=== PATIENT | female | born 1955 ===

== ENCOUNTER 2018-09-01 15:08 | Inpatient (IN) | payer MEDICARE, OTHER ==
[~2018-09-01] VITALS: Ht 167.6 cm; Wt 62.0 kg
[~2018-09-01 15:08] MED LIST: ALBU90OI INH; DOXY100 PO; ESCI20 PO; FLUT110OIA IH; HYDGUAL120 PO
[2018-09-01 15:56] LABS: Hematocrit 33.3 % (33.0-51.0); Hemoglobin 10.8 g/dL (11.5-16.0); Mean Corpuscular HGB 28.4 pg (26.0-34.0); Mean Corpuscular HGB Conc 32.4 g/dL (31.5-36.5); Mean Corpuscular Volume 88 fL (80-100); Mean Platelet Volume 8.7 fL (9.1-12.4); Platelet Count 273 K/mm3 (150-400); RDW Standard Deviation 57.9 fL (35.1-46.3); White Blood Cell Count 20.29 K/mm3 (4.00-11.30)
[2018-09-01] MEDS ORDERED: ALPR.5 PO (15:58)
[2018-09-01 16:14] LABS: BASOPHILS PERCENT MAN 0 % (0-2); EOSINOPHILS PERCENT MAN 0 % (0-6); LYMPHOCYTES ABSOLUTE MAN 0.81 K/mm3 (0.84-5.20); LYMPHOCYTES PERCENT MAN 4 % (21-46); MONOCYTES PERCENT MAN 2 % (4-13); NEUTROPHILS ABSOLUTE MAN 19.07 K/mm3 (1.96-9.15); SEG NEUTROPHILS PERCENT MAN 94 % (41-73); TOTAL CELLS COUNTED 100
[2018-09-01 16:22] LABS: Albumin, Blood 2.8 g/dL (3.4-5.0); Albumin/Globulin Ratio 0.6 (0.8-1.8); Bilirubin, Total 0.5 mg/dL (0.1-1.0); Bun/Creatinine Ratio 20.9 (12.0-20.0); Calcium, Blood 8.3 mg/dL (8.5-10.1); Creatinine, Blood 1.34 mg/dL (0.40-1.00); Globulin, Blood 4.7 g/dL (2.2-4.0); Potassium, Blood 3.1 mmol/L (3.5-5.5); Total Protein, Blood 7.5 g/dL (6.4-8.2); Troponin I 0.073 ng/mL (0.000-0.040)
--- NOTE | 2018-09-01 20:30 | NUR ---
PATIENT BLOOD PRESSURE DOWN TO 82/54 MAP 63. CALLED HOSPITALIST WHO ORDERED FOR 1L BOLUS OF NS. ALSO ASKED IF HE WOULD LIKE TO REPLACE K+ THAT WAS 3.1. THERE IS AN ORDER FOR NS WITH 20K+ AT 125 TO BE INFUSED THROUGH THE NIGHT, STATES THIS IS ENOUGH AT THIS TIME.
--- NOTE | 2018-09-01 21:57 | NUR ---
PATIENT FINISHED BOLUS BLOOD PRESSURE UP TO SYSTOLIC OF 101. MAP IS JUST ADEQUATE. PATIENT CONTINUES ON ROOM AIR, BUT IS AUDIBLY WET, LUNG SOUNDS ARE COARSE AND WET. NOTIFIED HOSPITALIST WHO ORDERED FOR 500CC BOLUS OF NS AND PORTABLE CHEST XR AFTER BOLUS IS FINISHED.
--- NOTE | 2018-09-02 02:10 | NUR ---
PATIENT BLOOD PRESSURE UP TO 157/87. PATIENT HAS SHORTNESS OF BREATH. OXYGEN SATURATION DOWN TO 88% ON ROOM AIR, PLACED ON 2l NC. PATIENT AUBILY WET AND LUNG SOUNDS ARE WET AND COARSE. CALLED HOSPITALIST WHO ORDERED FOR 40 MG OF IV LASIX X1 NOW.
[2018-09-02 04:06] LABS: BASOPHILS ABSOLUTE AUTO 0.03 K/mm3 (0.00-0.23); BASOPHILS PERCENT AUTO 0 % (0-2); Hematocrit 31.3 % (33.0-51.0); Hemoglobin 9.9 g/dL (11.5-16.0); LYMPHOCYTES ABSOLUTE AUTO 1.05 K/mm3 (0.84-5.20); LYMPHOCYTES PERCENT AUTO 9 % (21-46); MONOCYTES ABSOLUTE AUTO 1.05 K/mm3 (0.16-1.47); MONOCYTES PERCENT AUTO 9 % (4-13); Mean Corpuscular HGB 28.1 pg (26.0-34.0); Mean Corpuscular HGB Conc 31.6 g/dL (31.5-36.5); Mean Corpuscular Volume 89 fL (80-100); Mean Platelet Volume 9.4 fL (9.1-12.4); Platelet Count 253 K/mm3 (150-400); RDW Coefficient Variation 18.1 % (11.7-14.2); RDW Standard Deviation 58.6 fL (35.1-46.3); Red Blood Cell Count 3.52 M/mm3 (3.80-5.20); White Blood Cell Count 11.44 K/mm3 (4.00-11.30)
--- NOTE | 2018-09-02 04:09 | NUR ---
PATIENT HAVING COUGHING FITS OFTEN. GIVEN A WARM BLANKET THAT SEEMED TO HELP A BIT. COUGH NONPRODUCTIVE AT THIS TIME.
[2018-09-02 04:12] LABS: EOSINOPHILS PERCENT AUTO 0 % (0-6); IMMATURE GRAN ABSOLUTE AUTO 0.06 K/mm3 (0.00-0.10); IMMATURE GRAN PERCENT AUTO 1 % (0-1); NEUTROPHILS ABSOLUTE AUTO 9.25 K/mm3 (1.96-9.15); NEUTROPHILS PERCENT AUTO 81 % (41-73)
[2018-09-02 04:26] LABS: Bun/Creatinine Ratio 23.8 (12.0-20.0); Creatinine, Blood 1.01 mg/dL (0.40-1.00); Potassium, Blood 3.5 mmol/L (3.5-5.5)
--- NOTE | 2018-09-02 05:44 | NUR ---
PATIENT STRUGGLE TO GET ANY SLEEP DUE TO COUGHING AND HAVING TO GET UP TO THE COMMODE. PATIENT STATES SHE FEELS AWFUL. CONTINUING OXYGEN DUE COUGHING DROPPING OXYGEN INTO LOW 90'S WITH OXYGEN ON.
[2018-09-02] MEDS ORDERED: VENL75ER PO (07:04)
--- NOTE | 2018-09-02 11:06 | NUR ---
PT OFF PCU UNIT OUT TO [facility] FOR ANGIO. CONSENT SIGNED BY AND PATIENT PRIOR TO PATIENT LEAVING UNIT
--- NOTE | 2018-09-02 13:17 | NUR ---
ASSUMED CARE AND COMFORT OF THIS PATIENT AT 0710 TODAY FROM CAROL RN. PT WAS RESTING COMFORTABLY ON BED IN ROOM. ROUSED EASILY TO VERBAL STIMULI. COOPERATIVE WITH CARE THROUGHOUT DAY. MAKES MED NO TELE STATUS THIS AM AND TRANSFER ORDERS ARE PLACED BY THIS RN. IV NS WITH 20MEQ CONTINUES TO INFUSE ORDERED WILLCONTINUE TO MONITOR.
--- NOTE | 2018-09-02 14:01 | NUR ---
Patient is sitting on the edge of her bed and alert. She is talking with a friend who is on her lunch break so I make my comments brief. I find out patient's medical situation, how patient is processing mentally/emotionally and learn patient's belief system (firm believer in God and finds strength and inspiration from her prayers). I provide emotional support and prayer. Patient and friend thank you for the visit.
--- NOTE | 2018-09-02 16:58 | NUR ---
END OF SHIFT; PT VERY SLEEPY MOST OF DAY. IS NOW MED/NO TELE STATUS. PT ABLE TO GET SELF UP TO BEDSIDE COMMODE. NADN. DENIES ANY WANTS OR NEEDS. IS NOW ON ROOM AIR. XANAX X 1 TODAY FOR ANXIETY. REFUSES EFFEXOR STATES SHE HAS NOT TAKEN IT FOR OVER A MONTH. UPSET THAT HER DOCTOR WAS CHARGING HER TO RENEW RX. WILL CONTINUE TO MONITOR THIS PATEIETN UNTIL REPORT AND HAND OFF TO NOC SHIFT RN.
--- NOTE | 2018-09-03 01:29 | NUR ---
PATIENT COMPLAINS THAT SHE IS HAVING VERY WEIRD DREAMS AND SHE JUST CAN'T GET ANY SLEEP AND SHE JUST WANTS IT TO STOP. cALLED HOSPITALIST AT HER INSISTANCE. DOCTOR ORDERED FOR 1MG OF ATIVAN PO TIME ONE. NO FURTHER ORDERS AT THIS TIME.
--- NOTE | 2018-09-03 05:03 | NUR ---
PATIENT LUNG BUTCHER MORE COARSE AND WET. O2 DROPPING TO 88% ON ROOM AIR. PATIENT AUBILY WET. PATIENT FEELS SHORT OF BREATH. CALLED HOSPITALIST WHO ORDERED TO DISCONTINUE FLUIDS AND GIVE 40MG IV LASIX NOW. PATIENT CRYING THAT SHE JUST CAN'T STAND THIS. PATIENT VERY EMOTIONAL AND CRYING.
--- NOTE | 2018-09-03 08:30 | NUR ---
INITIAL ASSESSMENT: PT IS RESTING WITH HER EYES CLOSED, SHE IS LYING ON HER LEFT SIDE. PT EASILY AWAKENS TO VERBAL STIMULI. PT IS ALERT AND OX3. PT DENIES PAIN AT THIS TIME. HRR. LS COARSE T/O. PT HAS COARSE PC WITH THIN CLEAR SPUTUM. BIOX WNL ON RA. BT+. PPP. NO EDEMA PRESENT. VSS. AM MEDS GIVEN PO WITH A SIP OF WATER PT TOLERATED WELL. DRESSING FOR LEFT AC IV CHANGED, IV IS LEAKING-IV DC'D. PT DENIES OTHER NEEDS AT THIS TIME. CALL LIGHT IN REACH, WILL CONTINUE TO MONITOR.
--- NOTE | 2018-09-03 10:15 | NUR ---
THIS RN RECIEVED A MEDICAL BED FOR PATIENT, BUT DR. HERRERA CAME TO SEE THE PATIENT AND PLANS ON DISCHARGING PATIENT. WE WILL KEEP THE PATIENT HERE UNTIL SHE IS DISCHARGED.
[2018-09-03] MEDS ORDERED: ALBU90OI6 INH (12:09)
[2018-09-03] MEDS ORDERED: CEFD300 PO (12:09)
--- NOTE | 2018-09-03 13:14 | NUR ---
IV DC'D CATH INTACT. PTS AUNT AND UNCLE TO TAKE PT HOME VIA WC.
== END 2018-09-03 13:14 | disposition home or self-care (01) | DRG 193 ==
LOC: ER 15:08 → PCU 16:55
PROVIDERS: Physician Assistant; ADMIT Internal Medicine
DX: J18.1 Lobar pneumonia, unspecified organism (principal); I21.4 Non-ST elevation (NSTEMI) myocardial infarction; R65.20 Severe sepsis without septic shock; N17.9 Acute kidney failure, unspecified; C92.11 Chronic myeloid leukemia, BCR/ABL-positive, in remission; I24.8 Other forms of acute ischemic heart disease; F17.210 Nicotine dependence, cigarettes, uncomplicated; Z92.21 Personal history of antineoplastic chemotherapy; E87.6 Hypokalemia; B19.20 Unspecified viral hepatitis C without hepatic coma; E78.5 Hyperlipidemia, unspecified; I95.9 Hypotension, unspecified; D63.0 Anemia in neoplastic disease
CPT/HCPCS: 36415; 71045; 71046; 80048; 80053; 83605; 83690; 84484; 85025; 86850; 86900; 86901; 87040; 93005; 93010; 94640; 94760; 96361; 96365; 96375; 99285-25; A9270; J0456; J0692; J0696; J1650; J1940; J3370; J3480; J7030; J7050